=== PATIENT | male | born 1935 | race Caucasian/White ===

== ENCOUNTER 2017-01-26 14:20 | Inpatient (IN) | payer MEDICARE, OTHER ==
[2017-01-26] MEDS ORDERED: TYLENOL325 M2 PO (14:52)
[2017-01-26] MEDS ORDERED: ASPIRIN81 M1 PO (14:53)
[2017-01-26] MEDS ORDERED: AMARYL2 M1 PO (14:53)
[2017-01-26] MEDS ORDERED: LIPITOR20 M1 PO (14:54)
[2017-01-26] MEDS ORDERED: DEXAMETHASONE4 M1 PO (14:54)
[2017-01-26] MEDS ORDERED: CYCLOBENZAPRINE10 M1 PO (14:54)
[2017-01-26] MEDS ORDERED: DICLOFENAC SODI50 M1 (14:55)
[2017-01-26] MEDS ORDERED: MIDODRINE HCL5 M1 PO (14:56)
[2017-01-26] MEDS ORDERED: NITROSTAT0.4 MG/TAB SL (14:56)
[2017-01-26] MEDS ORDERED: ADULT TUSS100 MG/51 PO (14:56)
[2017-01-26] MEDS ORDERED: LYRICA50 MG/CAP PO (14:56)
[2017-01-26] MEDS ORDERED: NORCO 5-325 TA1 EACH PO (14:57)
[2017-01-26] MEDS ORDERED: ONGLYZA2.5 M1 PO (14:57)
[2017-01-26] MEDS ORDERED: OMEPRAZOLE20 M3 PO (14:57)
[2017-01-26] MEDS ORDERED: FLOMAX0.4 M1 PO (14:58)
[2017-01-26] MEDS ORDERED: ALDACTONE25 M1 PO (14:58)
[2017-01-26] MEDS ORDERED: REQUIP4 M1 PO (14:58)
[2017-01-26] MEDS ORDERED: SIMVASTATIN80 M1 PO (14:59)
[2017-01-26] MEDS ORDERED: B-121000 MC2 PO (14:59)
[2017-01-26 19:12] LABS: ALB/GLOB RATIO 0.7 (0.8-2.0); ALBUMIN 2.8 g/dl (3.5-5.0); ALKALINE PHOSPHATASE 91 U/L (33-138); ALT/SGPT 28 U/L (12-78); ANION GAP 12 mmol/L (0-20); AST/SGOT 35 U/L (10-40); BILIRUBIN,TOTAL 0.5 mg/dl (0.0-1.5); BLOOD UREA NITROGEN 27 mg/dl (6-24); CALCIUM 8.5 mg/dl (8.5-10.5); CARBON DIOXIDE-VENOUS 28 mmol/L (22-32); CHLORIDE 104 mmol/l (96-110); CREATININE 1.25 mg/dl (0.60-1.30); GLUCOSE 137 mg/dL (70-110); MAGNESIUM 1.7 mg/dl (1.3-2.6); PHOSPHOROUS 2.8 mg/dl (2.5-4.9); POTASSIUM 4.6 mmol/L (3.7-5.1); SODIUM 139 mmol/L (135-145); eGFR VALUE FOR BLACK 62 mL/Min
[2017-01-26 19:20] LABS: BASO % 0.1 % (0-2); EOS % 0.9 % (0-7); EOSINOPHIL ABSOLUTE COUNT 0.1 tho/cmm (0.0-0.7); HGB-HEMOGLOBIN 10.9 gm/dl (13.5-17.0); IMMATURE GRANULOCYTES ABSOLUTE 0.09 tho/cmm (0-0.03); IMMATURE GRANULOCYTES PERCENT 1.2 % (0-0.3); LYMPH % 7.7 % (20-45); LYMPH ABSOLUTE COUNT 0.6 tho/cmm (0.8-4.5); MCH (MEAN CORPUSCULAR HGB) 25.3 pg (28.0-32.0); MCHC MEAN CORPUSCULAR HGB CONC 31.1 % (32.0-36.0); MCV (MEAN CELL VOLUME) 81.4 fl (82.0-96.0); MEAN PLATELET VOLUME 11.9 cmc (9.4-12.4); MONO % 9.7 % (0-12); MONOCYTE ABSOLUTE COUNT 0.7 tho/cmm (0.0-1.2); NEUTROPHIL ABSOLUTE COUNT 6.1 tho/cmm (1.6-8.0); NEUTROPHIL-AUTOMATED 6.1 tho/cmm (1.6-8.0); NEUTROPHILS % 80.4 % (40-80); RED CELL DISTRIBUTION WIDTH 17.4 % (12.4-16.4); WHITE BLOOD COUNT 7.5 tho/cmm (4.0-10.0)
[2017-01-26 19:52] LABS: PLATELET COUNT 96 tho/cmm (150-450)
[2017-01-28 06:43] LABS: EOS % 0.2 % (0-7); HCT-HEMATOCRIT 33.9 % (36.0-53.5); HGB-HEMOGLOBIN 10.7 gm/dl (13.5-17.0); IMMATURE GRANULOCYTES ABSOLUTE 0.08 tho/cmm (0-0.03); IMMATURE GRANULOCYTES PERCENT 1.3 % (0-0.3); LYMPH % 4.3 % (20-45); LYMPH ABSOLUTE COUNT 0.3 tho/cmm (0.8-4.5); MCH (MEAN CORPUSCULAR HGB) 25.6 pg (28.0-32.0); MCHC MEAN CORPUSCULAR HGB CONC 31.6 % (32.0-36.0); MCV (MEAN CELL VOLUME) 81.1 fl (82.0-96.0); MEAN PLATELET VOLUME 10.9 cmc (9.4-12.4); MONO % 11.3 % (0-12); MONOCYTE ABSOLUTE COUNT 0.7 tho/cmm (0.0-1.2); NEUTROPHILS % 82.9 % (40-80); PLATELET COUNT 125 tho/cmm (150-450); RED BLOOD COUNT 4.18 mil/cmm (4.40-5.70); RED CELL DISTRIBUTION WIDTH 17.2 % (12.4-16.4)
[2017-01-30] MEDS ORDERED: CYCLOBENZAPRINE10 M1 PO (12:16)
[2017-05-07] MEDS ORDERED: CLARITIN10 M6 PO
[2017-05-07] MEDS ORDERED: TOPROL XL25 M1 PO (00:02)
[2017-05-07] MEDS ORDERED: ONGLYZA2.5 M1 PO (00:03)
[2017-05-07] MEDS ORDERED: PROTONIX40 M2 PO (00:03)
[2017-05-07] MEDS ORDERED: FUROSEMIDE20 M1 PO (00:05)
[2017-05-07] MEDS ORDERED: MILK OF MAGNESIA PO (00:09)
[2017-05-07] MEDS ORDERED: POTASSIUM CHLO10 ME2 PO (00:11)
== END 2017-01-30 13:37 | DRG 472 ==
LOC: 5EB 14:20 → ORE 01-28 10:07 → PACU 01-28 14:15 → CCU 01-28 15:38 → 5EB 01-30 06:00
PROVIDERS: Family Medicine; Neurological Surgery; ADMIT Internal Medicine
PROC: 05HD33Z Insertion of Infusion Device into Right Cephalic Vein, Percutaneous Approach (ICD-10-PCS; 2017-01-26)
PROC: 0RG2071 Fusion of 2 or more Cervical Vertebral Joints with Autologous Tissue Substitute, Posterior Approach, Posterior Column, Open Approach (ICD-10-PCS; principal; 2017-01-28)
PROC: 8E0WXBG Computer Assisted Procedure of Trunk Region, With Computerized Tomography (ICD-10-PCS; 2017-01-28)
DX: M47.12 Other spondylosis with myelopathy, cervical region (principal); I13.0 Hypertensive heart and chronic kidney disease with heart failure and stage 1 through stage 4 chronic kidney disease, or unspecified chronic kidney disease; I50.22 Chronic systolic (congestive) heart failure; E11.42 Type 2 diabetes mellitus with diabetic polyneuropathy; M48.02 Spinal stenosis, cervical region; M48.06 Spinal stenosis, lumbar region; I25.5 Ischemic cardiomyopathy; G25.81 Restless legs syndrome; I25.10 Atherosclerotic heart disease of native coronary artery without angina pectoris; N40.0 Benign prostatic hyperplasia without lower urinary tract symptoms; G25.3 Myoclonus; Z95.1 Presence of aortocoronary bypass graft; Z79.82 Long term (current) use of aspirin; Z79.84 Long term (current) use of oral hypoglycemic drugs; E78.5 Hyperlipidemia, unspecified; N18.2 Chronic kidney disease, stage 2 (mild)
CPT/HCPCS: C1713; C1751; J0690; J1650; J1815; J2250; J3010; J7040

== ENCOUNTER 2017-02-11 13:39 | Inpatient (IN) | payer MEDICARE, OTHER ==
[~2017-02-11 13:39] MED LIST: ADULT TUSS100 MG/51 PO; ALDACTONE25 M1 PO; AMARYL2 M1 PO; ASPIRIN81 M1 PO; B-121000 MC2 PO; CYCLOBENZAPRINE10 M1 PO; DEXAMETHASONE4 M1 PO; DICLOFENAC SODI50 M1; FLOMAX0.4 M1 PO; LIPITOR20 M1 PO; LYRICA50 MG/CAP PO; MIDODRINE HCL5 M1 PO; NITROSTAT0.4 MG/TAB SL; NORCO 5-325 TA1 EACH PO; OMEPRAZOLE20 M3 PO; ONGLYZA2.5 M1 PO; REQUIP4 M1 PO; SIMVASTATIN80 M1 PO; TYLENOL325 M2 PO
[2017-02-11] MEDS ORDERED: DEXAMETHASONE4 M1 PO (14:42)
[2017-02-11] MEDS ORDERED: NEURONTIN300 M1 PO (14:46)
[2017-02-11 17:51] LABS: BASO % 0.1 % (0-2); EOS % 0.1 % (0-7); HCT-HEMATOCRIT 28.8 % (36.0-53.5); HGB-HEMOGLOBIN 8.7 gm/dl (13.5-17.0); IMMATURE GRANULOCYTES ABSOLUTE 0.08 tho/cmm (0-0.03); IMMATURE GRANULOCYTES PERCENT 0.6 % (0-0.3); LYMPH % 4.4 % (20-45); LYMPH ABSOLUTE COUNT 0.6 tho/cmm (0.8-4.5); MCH (MEAN CORPUSCULAR HGB) 24.8 pg (28.0-32.0); MCHC MEAN CORPUSCULAR HGB CONC 30.2 % (32.0-36.0); MCV (MEAN CELL VOLUME) 82.1 fl (82.0-96.0); MEAN PLATELET VOLUME 10.5 cmc (9.4-12.4); MONOCYTE ABSOLUTE COUNT 1.4 tho/cmm (0.0-1.2); NEUTROPHIL ABSOLUTE COUNT 11.4 tho/cmm (1.6-8.0); NEUTROPHIL-AUTOMATED 11.4 tho/cmm (1.6-8.0); NEUTROPHILS % 84.8 % (40-80); PLATELET COUNT 234 tho/cmm (150-450); RED BLOOD COUNT 3.51 mil/cmm (4.40-5.70); RED CELL DISTRIBUTION WIDTH 17.5 % (12.4-16.4); WHITE BLOOD COUNT 13.5 tho/cmm (4.0-10.0)
[2017-02-11 18:07] LABS: C-REACTIVE PROTEIN 15.7 mg/dl (0-0.9)
--- NOTE | 2017-02-11 18:39 | NUR ---
PATIENT RECEIVED 1500CC NS BOLUS IN [facility] SO GIVING PATIENT 500CC TO MAKE 2000CC TOTAL FOR 30CC/KG.
[2017-02-11 18:54] LABS: URINE BILIRUBIN NEGATIVE (NEG); URINE BLOOD NEGATIVE (NEG); URINE GLUCOSE (UA) NEGATIVE (NEG); URINE KETONE NEGATIVE (NEG); URINE LEUKOCYTE ESTERASE POSITIVE (NEG); URINE NITRITE NEGATIVE (NEG); URINE PROTEIN NEGATIVE (NEG); URINE SPECIFIC GRAVITY 1.015 (1.003-1.030)
[2017-02-11 19:01] LABS: URINE APPEARANCE CLEAR; URINE COLOR YELLOW
[2017-02-11 19:02] LABS: eGFR VALUE FOR BLACK 46 mL/Min
[2017-02-11 19:13] LABS: URINE RBC 0 /[HPF] (0-5)
[2017-02-12 04:48] LABS: ANION GAP 12 mmol/L (0-20); BLOOD UREA NITROGEN 32 mg/dl (6-24); CALCIUM 8.8 mg/dl (8.5-10.5); CARBON DIOXIDE-VENOUS 35 mmol/L (22-32); CHLORIDE 97 mmol/l (96-110); CREATININE 1.56 mg/dl (0.60-1.30); GLUCOSE 139 mg/dL (70-110); POTASSIUM 3.5 mmol/L (3.7-5.1); SODIUM 140 mmol/L (135-145); eGFR VALUE FOR BLACK 48 mL/Min
[2017-02-12 15:26] LABS: BASO % 0.1 % (0-2); EOS % 0.1 % (0-7); HCT-HEMATOCRIT 30.4 % (36.0-53.5); HGB-HEMOGLOBIN 9.3 gm/dl (13.5-17.0); IMMATURE GRANULOCYTES ABSOLUTE 0.07 tho/cmm (0-0.03); IMMATURE GRANULOCYTES PERCENT 0.5 % (0-0.3); LYMPH % 2.2 % (20-45); LYMPH ABSOLUTE COUNT 0.3 tho/cmm (0.8-4.5); MCH (MEAN CORPUSCULAR HGB) 24.9 pg (28.0-32.0); MCHC MEAN CORPUSCULAR HGB CONC 30.6 % (32.0-36.0); MCV (MEAN CELL VOLUME) 81.3 fl (82.0-96.0); MEAN PLATELET VOLUME 10.6 cmc (9.4-12.4); MONO % 2.8 % (0-12); MONOCYTE ABSOLUTE COUNT 0.4 tho/cmm (0.0-1.2); NEUTROPHIL ABSOLUTE COUNT 14.2 tho/cmm (1.6-8.0); NEUTROPHIL-AUTOMATED 14.2 tho/cmm (1.6-8.0); NEUTROPHILS % 94.3 % (40-80); PLATELET COUNT 250 tho/cmm (150-450); RED BLOOD COUNT 3.74 mil/cmm (4.40-5.70); RED CELL DISTRIBUTION WIDTH 17.1 % (12.4-16.4)
[2017-02-12 15:33] LABS: BLOOD UREA NITROGEN 37 mg/dl (6-24); CALCIUM 8.2 mg/dl (8.5-10.5); CARBON DIOXIDE-VENOUS 34 mmol/L (22-32); CHLORIDE 91 mmol/l (96-110); CREATININE 1.78 mg/dl (0.60-1.30); SODIUM 133 mmol/L (135-145); eGFR VALUE FOR BLACK 41 mL/Min
[2017-02-12 15:47] LABS: ANION GAP 12 mmol/L (0-20); GLUCOSE 337 mg/dL (70-110); POTASSIUM 4.4 mmol/L (3.7-5.1)
[2017-02-13 05:11] LABS: BASO % 0.1 % (0-2); EOS % 0.1 % (0-7); HCT-HEMATOCRIT 30.9 % (36.0-53.5); HGB-HEMOGLOBIN 9.5 gm/dl (13.5-17.0); IMMATURE GRANULOCYTES ABSOLUTE 0.08 tho/cmm (0-0.03); IMMATURE GRANULOCYTES PERCENT 0.6 % (0-0.3); LYMPH % 3.9 % (20-45); LYMPH ABSOLUTE COUNT 0.5 tho/cmm (0.8-4.5); MCH (MEAN CORPUSCULAR HGB) 24.9 pg (28.0-32.0); MCHC MEAN CORPUSCULAR HGB CONC 30.7 % (32.0-36.0); MCV (MEAN CELL VOLUME) 81.1 fl (82.0-96.0); MEAN PLATELET VOLUME 10.9 cmc (9.4-12.4); MONOCYTE ABSOLUTE COUNT 1.1 tho/cmm (0.0-1.2); NEUTROPHIL ABSOLUTE COUNT 11.6 tho/cmm (1.6-8.0); NEUTROPHIL-AUTOMATED 11.6 tho/cmm (1.6-8.0); NEUTROPHILS % 87.3 % (40-80); PLATELET COUNT 271 tho/cmm (150-450); RED BLOOD COUNT 3.81 mil/cmm (4.40-5.70); WHITE BLOOD COUNT 13.3 tho/cmm (4.0-10.0)
[2017-02-13 05:22] LABS: BLOOD UREA NITROGEN 39 mg/dl (6-24); CALCIUM 8.5 mg/dl (8.5-10.5); CARBON DIOXIDE-VENOUS 33 mmol/L (22-32); CHLORIDE 91 mmol/l (96-110); CREATININE 1.81 mg/dl (0.60-1.30); GLUCOSE 212 mg/dL (70-110); SODIUM 134 mmol/L (135-145); eGFR VALUE FOR BLACK 40 mL/Min
[2017-02-13 05:36] LABS: ANION GAP 15 mmol/L (0-20); C-REACTIVE PROTEIN 19.5 mg/dl (0-0.9); POTASSIUM 4.7 mmol/L (3.7-5.1)
[2017-02-14 05:11] LABS: BASO % 0.1 % (0-2); EOS % 0.1 % (0-7); HCT-HEMATOCRIT 28.8 % (36.0-53.5); HGB-HEMOGLOBIN 8.8 gm/dl (13.5-17.0); IMMATURE GRANULOCYTES ABSOLUTE 0.05 tho/cmm (0-0.03); IMMATURE GRANULOCYTES PERCENT 0.4 % (0-0.3); LYMPH % 3.8 % (20-45); LYMPH ABSOLUTE COUNT 0.4 tho/cmm (0.8-4.5); MCH (MEAN CORPUSCULAR HGB) 24.6 pg (28.0-32.0); MCHC MEAN CORPUSCULAR HGB CONC 30.6 % (32.0-36.0); MCV (MEAN CELL VOLUME) 80.4 fl (82.0-96.0); MEAN PLATELET VOLUME 10.8 cmc (9.4-12.4); NEUTROPHIL ABSOLUTE COUNT 9.6 tho/cmm (1.6-8.0); NEUTROPHIL-AUTOMATED 9.6 tho/cmm (1.6-8.0); NEUTROPHILS % 86.6 % (40-80); PLATELET COUNT 257 tho/cmm (150-450); RED BLOOD COUNT 3.58 mil/cmm (4.40-5.70); RED CELL DISTRIBUTION WIDTH 17.1 % (12.4-16.4); WHITE BLOOD COUNT 11.1 tho/cmm (4.0-10.0)
[2017-02-14 05:18] LABS: BLOOD UREA NITROGEN 57 mg/dl (6-24); C-REACTIVE PROTEIN 10.8 mg/dl (0-0.9); CALCIUM 8.1 mg/dl (8.5-10.5); CARBON DIOXIDE-VENOUS 36 mmol/L (22-32); CHLORIDE 88 mmol/l (96-110); GLUCOSE 207 mg/dL (70-110); SODIUM 133 mmol/L (135-145); eGFR VALUE FOR BLACK 29 mL/Min
[2017-02-14 05:25] LABS: ANION GAP 13 mmol/L (0-20); POTASSIUM 3.8 mmol/L (3.7-5.1)
[2017-02-14 05:26] LABS: CREATININE 2.32 mg/dl (0.60-1.30)
[2017-02-14 14:21] LABS: ANION GAP 15 mmol/L (0-20); BLOOD UREA NITROGEN 62 mg/dl (6-24); CALCIUM 7.8 mg/dl (8.5-10.5); CARBON DIOXIDE-VENOUS 34 mmol/L (22-32); CHLORIDE 87 mmol/l (96-110); CREATININE 2.39 mg/dl (0.60-1.30); GLUCOSE 243 mg/dL (70-110); POTASSIUM 3.9 mmol/L (3.7-5.1); SODIUM 132 mmol/L (135-145); eGFR VALUE FOR BLACK 28 mL/Min
[2017-02-14 22:56] LABS: URINE CREATININE-RANDOM 23 mg/dl (30-125); URINE SODIUM-RANDOM 75 mmol/L (20-110)
[2017-02-15 06:23] LABS: ANION GAP 14 mmol/L (0-20); BLOOD UREA NITROGEN 58 mg/dl (6-24); CALCIUM 8.5 mg/dl (8.5-10.5); CARBON DIOXIDE-VENOUS 35 mmol/L (22-32); CHLORIDE 89 mmol/l (96-110); CREATININE 2.09 mg/dl (0.60-1.30); GLUCOSE 162 mg/dL (70-110); MAGNESIUM 1.8 mg/dl (1.3-2.6); PHOSPHOROUS 3.7 mg/dl (2.5-4.9); SODIUM 134 mmol/L (135-145); eGFR VALUE FOR BLACK 33 mL/Min
[2017-02-15 06:25] LABS: BASO % 0.3 % (0-2); EOS % 1.4 % (0-7); EOSINOPHIL ABSOLUTE COUNT 0.1 tho/cmm (0.0-0.7); HCT-HEMATOCRIT 34.5 % (36.0-53.5); HGB-HEMOGLOBIN 10.8 gm/dl (13.5-17.0); IMMATURE GRANULOCYTES ABSOLUTE 0.18 tho/cmm (0-0.03); IMMATURE GRANULOCYTES PERCENT 1.8 % (0-0.3); LYMPH % 6.6 % (20-45); LYMPH ABSOLUTE COUNT 0.7 tho/cmm (0.8-4.5); MCH (MEAN CORPUSCULAR HGB) 25.3 pg (28.0-32.0); MCHC MEAN CORPUSCULAR HGB CONC 31.3 % (32.0-36.0); MCV (MEAN CELL VOLUME) 80.8 fl (82.0-96.0); MEAN PLATELET VOLUME 11.2 cmc (9.4-12.4); MONO % 12.1 % (0-12); MONOCYTE ABSOLUTE COUNT 1.2 tho/cmm (0.0-1.2); NEUTROPHIL ABSOLUTE COUNT 7.6 tho/cmm (1.6-8.0); NEUTROPHIL-AUTOMATED 7.6 tho/cmm (1.6-8.0); NEUTROPHILS % 77.8 % (40-80); PLATELET COUNT 250 tho/cmm (150-450); RED BLOOD COUNT 4.27 mil/cmm (4.40-5.70); RED CELL DISTRIBUTION WIDTH 16.7 % (12.4-16.4); WHITE BLOOD COUNT 9.8 tho/cmm (4.0-10.0)
[2017-02-16 05:58] LABS: BASO % 0.1 % (0-2); EOS % 0.1 % (0-7); HCT-HEMATOCRIT 33.2 % (36.0-53.5); HGB-HEMOGLOBIN 10.6 gm/dl (13.5-17.0); IMMATURE GRANULOCYTES PERCENT 1.9 % (0-0.3); LYMPH % 3.3 % (20-45); LYMPH ABSOLUTE COUNT 0.4 tho/cmm (0.8-4.5); MCH (MEAN CORPUSCULAR HGB) 25.7 pg (28.0-32.0); MCHC MEAN CORPUSCULAR HGB CONC 31.9 % (32.0-36.0); MCV (MEAN CELL VOLUME) 80.4 fl (82.0-96.0); MEAN PLATELET VOLUME 11.5 cmc (9.4-12.4); MONO % 7.2 % (0-12); MONOCYTE ABSOLUTE COUNT 0.8 tho/cmm (0.0-1.2); NEUTROPHIL ABSOLUTE COUNT 9.3 tho/cmm (1.6-8.0); NEUTROPHIL-AUTOMATED 9.3 tho/cmm (1.6-8.0); NEUTROPHILS % 87.4 % (40-80); PLATELET COUNT 210 tho/cmm (150-450); RED BLOOD COUNT 4.13 mil/cmm (4.40-5.70); RED CELL DISTRIBUTION WIDTH 16.7 % (12.4-16.4); WHITE BLOOD COUNT 10.7 tho/cmm (4.0-10.0)
[2017-02-16 06:13] LABS: BLOOD UREA NITROGEN 47 mg/dl (6-24); CALCIUM 8.1 mg/dl (8.5-10.5); CARBON DIOXIDE-VENOUS 28 mmol/L (22-32); CHLORIDE 93 mmol/l (96-110); CREATININE 1.87 mg/dl (0.60-1.30); SODIUM 131 mmol/L (135-145); eGFR VALUE FOR BLACK 38 mL/Min
[2017-02-16 06:17] LABS: ANION GAP 15 mmol/L (0-20); GLUCOSE 334 mg/dL (70-110)
[2017-02-16 06:18] LABS: POTASSIUM 4.9 mmol/L (3.7-5.1)
[2017-02-17 05:27] LABS: BLOOD UREA NITROGEN 46 mg/dl (6-24); CALCIUM 8.4 mg/dl (8.5-10.5); CARBON DIOXIDE-VENOUS 33 mmol/L (22-32); CHLORIDE 93 mmol/l (96-110); CREATININE 1.75 mg/dl (0.60-1.30); SODIUM 134 mmol/L (135-145); eGFR VALUE FOR BLACK 41 mL/Min
[2017-02-17 05:53] LABS: ANION GAP 12 mmol/L (0-20); GLUCOSE 135 mg/dL (70-110); POTASSIUM 3.9 mmol/L (3.7-5.1)
[2017-02-18 05:30] LABS: ANION GAP 14 mmol/L (0-20); BLOOD UREA NITROGEN 42 mg/dl (6-24); CALCIUM 8.6 mg/dl (8.5-10.5); CARBON DIOXIDE-VENOUS 30 mmol/L (22-32); CHLORIDE 96 mmol/l (96-110); CREATININE 1.54 mg/dl (0.60-1.30); GLUCOSE 131 mg/dL (70-110); POTASSIUM 3.9 mmol/L (3.7-5.1); SODIUM 136 mmol/L (135-145); eGFR VALUE FOR BLACK 48 mL/Min
[2017-02-19 05:57] LABS: ANION GAP 13 mmol/L (0-20); BLOOD UREA NITROGEN 42 mg/dl (6-24); CALCIUM 8.6 mg/dl (8.5-10.5); CARBON DIOXIDE-VENOUS 28 mmol/L (22-32); CHLORIDE 98 mmol/l (96-110); CREATININE 1.43 mg/dl (0.60-1.30); GLUCOSE 170 mg/dL (70-110); POTASSIUM 3.9 mmol/L (3.7-5.1); SODIUM 135 mmol/L (135-145); eGFR VALUE FOR BLACK 53 mL/Min
[2017-02-19] MEDS ORDERED: PACERONE200 M1 PO (09:58)
[2017-02-19] MEDS ORDERED: LOVENOX30 MG/0.1 SC (09:58)
[2017-02-19] MEDS ORDERED: IPRAT-ALBUT 0.5-3 ML AERO NEB (09:58)
[2017-02-19] MEDS ORDERED: NORCO 5-325 TA1 EACH PO (10:02)
[2017-02-19] MEDS ORDERED: TYLENOL EXTRA500 M1 PO (10:03)
[2017-02-19] MEDS ORDERED: DULCOLAX10 MG PR (10:04)
[2017-02-19] MEDS ORDERED: SENOKOT-S TABL1 EACH PO (10:05)
[2017-02-19] MEDS ORDERED: MIRALAX17 G2 PO (10:05)
[2017-02-19] MEDS ORDERED: NOVOLOG100 UNITS/ SC (10:07)
[2017-02-19] MEDS ORDERED: VIBRAMYCIN100 M1 PO (10:08)
[2017-05-07] MEDS ORDERED: CLARITIN10 M6 PO
[2017-05-07] MEDS ORDERED: TOPROL XL25 M1 PO (00:02)
[2017-05-07] MEDS ORDERED: ONGLYZA2.5 M1 PO (00:03)
[2017-05-07] MEDS ORDERED: PROTONIX40 M2 PO (00:03)
[2017-05-07] MEDS ORDERED: FUROSEMIDE20 M1 PO (00:05)
[2017-05-07] MEDS ORDERED: MILK OF MAGNESIA PO (00:09)
[2017-05-07] MEDS ORDERED: POTASSIUM CHLO10 ME2 PO (00:11)
== END 2017-02-19 14:00 | DRG 856 ==
LOC: PCUA 13:39 → ORE 02-15 11:00 → PACU 02-15 12:33 → PCUA 02-15 14:24
PROVIDERS: Family Medicine; Internal Medicine; Internal Medicine Interventional Cardiology; Internal Medicine Nephrology; ADMIT Internal Medicine
PROC: 05H633Z Insertion of Infusion Device into Left Subclavian Vein, Percutaneous Approach (ICD-10-PCS; 2017-02-11)
PROC: 5A09357 Assistance with Respiratory Ventilation, Less than 24 Consecutive Hours, Continuous Positive Airway Pressure (ICD-10-PCS; 2017-02-12)
PROC: 0PP304Z Removal of Internal Fixation Device from Cervical Vertebra, Open Approach (ICD-10-PCS; principal; 2017-02-15)
PROC: 0J9500Z Drainage of Left Neck Subcutaneous Tissue and Fascia with Drainage Device, Open Approach (ICD-10-PCS; 2017-02-15)
DX: T81.4XXA Infection following a procedure, initial encounter (principal); J96.01 Acute respiratory failure with hypoxia; I50.43 Acute on chronic combined systolic (congestive) and diastolic (congestive) heart failure; N17.9 Acute kidney failure, unspecified; A41.9 Sepsis, unspecified organism; N18.3 Chronic kidney disease, stage 3 (moderate); I13.0 Hypertensive heart and chronic kidney disease with heart failure and stage 1 through stage 4 chronic kidney disease, or unspecified chronic kidney disease; E87.1 Hypo-osmolality and hyponatremia; G95.9 Disease of spinal cord, unspecified; Z91.81 History of falling; N40.0 Benign prostatic hyperplasia without lower urinary tract symptoms; E78.5 Hyperlipidemia, unspecified; I25.10 Atherosclerotic heart disease of native coronary artery without angina pectoris; Z95.1 Presence of aortocoronary bypass graft; I25.5 Ischemic cardiomyopathy; Z98.1 Arthrodesis status; Z87.891 Personal history of nicotine dependence; E11.22 Type 2 diabetes mellitus with diabetic chronic kidney disease; Z95.810 Presence of automatic (implantable) cardiac defibrillator; Z79.82 Long term (current) use of aspirin; B95.0 Streptococcus, group A, as the cause of diseases classified elsewhere; Z90.5 Acquired absence of kidney; R91.1 Solitary pulmonary nodule
CPT/HCPCS: C1751; J0282; J1160; J1250; J1650; J1815; J1940; J2250; J2543; J3010; J3370; J3475; J3480; J7030; J7040; J7050; P9016

== ENCOUNTER 2017-05-07 15:41 | Inpatient (IN) | payer MEDICARE, OTHER, MEDICAID ==
[~2017-05-07 15:41] MED LIST changes: +CLARITIN10 M6 PO; +DULCOLAX10 MG PR; +FUROSEMIDE20 M1 PO; +IPRAT-ALBUT 0.5-3 ML AERO NEB; +LOVENOX30 MG/0.1 SC; +MILK OF MAGNESIA PO; +MIRALAX17 G2 PO; +NEURONTIN300 M1 PO; +NOVOLOG100 UNITS/ SC; +PACERONE200 M1 PO; +POTASSIUM CHLO10 ME2 PO; +PROTONIX40 M2 PO; +SENOKOT-S TABL1 EACH PO; +TOPROL XL25 M1 PO; +TYLENOL EXTRA500 M1 PO; +VIBRAMYCIN100 M1 PO
[2017-05-07 17:58] LABS: BASO % 0.2 % (0-2); EOS % 2.2 % (0-7); EOSINOPHIL ABSOLUTE COUNT 0.1 tho/cmm (0.0-0.7); HCT-HEMATOCRIT 19.9 % (36.0-53.5); HGB-HEMOGLOBIN 6.1 gm/dl (13.5-17.0); IMMATURE GRANULOCYTES ABSOLUTE 0.08 tho/cmm (0-0.03); IMMATURE GRANULOCYTES PERCENT 1.5 % (0-0.3); LYMPH % 12.7 % (20-45); LYMPH ABSOLUTE COUNT 0.7 tho/cmm (0.8-4.5); MCH (MEAN CORPUSCULAR HGB) 25.5 pg (28.0-32.0); MCHC MEAN CORPUSCULAR HGB CONC 30.7 % (32.0-36.0); MCV (MEAN CELL VOLUME) 83.3 fl (82.0-96.0); MONO % 13.6 % (0-12); MONOCYTE ABSOLUTE COUNT 0.7 tho/cmm (0.0-1.2); NEUTROPHIL ABSOLUTE COUNT 3.8 tho/cmm (1.6-8.0); NEUTROPHIL-AUTOMATED 3.8 tho/cmm (1.6-8.0); NEUTROPHILS % 69.8 % (40-80); PLATELET COUNT 130 tho/cmm (150-450); RED BLOOD COUNT 2.39 mil/cmm (4.40-5.70); RED CELL DISTRIBUTION WIDTH 19.2 % (12.4-16.4); WHITE BLOOD COUNT 5.4 tho/cmm (4.0-10.0)
[2017-05-07 18:16] LABS: IRON 25 ug/dl (49-181); IRON BINDING CAPACITY 363 ug/dl (250-450)
[2017-05-07 18:18] LABS: ALB/GLOB RATIO 0.9 (0.8-2.0); ALBUMIN 3.2 g/dl (3.5-5.0); ALKALINE PHOSPHATASE 89 U/L (33-138); ALT/SGPT 25 U/L (12-78); ANION GAP 17 mmol/L (0-20); AST/SGOT 16 U/L (10-40); BILIRUBIN,DIRECT 0.1 mg/dl (0.0-0.3); BILIRUBIN,INDIRECT 0.1 mg/dL (0.0-1.0); BILIRUBIN,TOTAL 0.2 mg/dl (0.0-1.5); BLOOD UREA NITROGEN 69 mg/dl (6-24); CALCIUM 8.2 mg/dl (8.5-10.5); CARBON DIOXIDE-VENOUS 23 mmol/L (22-32); CHLORIDE 110 mmol/l (96-110); CREATININE 1.75 mg/dl (0.60-1.30); FERRITIN 13 ng/ml (22-388); GLUCOSE 90 mg/dL (70-110); MAGNESIUM 2.4 mg/dl (1.8-2.6); POTASSIUM 4.7 mmol/L (3.7-5.1); SODIUM 145 mmol/L (135-145); eGFR VALUE FOR BLACK 41 mL/Min
[2017-05-07] MEDS ORDERED: LIPITOR20 M1 PO (23:53)
[2017-05-07] MEDS ORDERED: FLUTICASONE (23:58)
[2017-05-07] MEDS ORDERED: LASIX20 M1 PO (23:59)
[2017-05-08 11:55] LABS: HGB-HEMOGLOBIN 8.6 gm/dl (13.5-17.0)
[2017-05-09 05:32] LABS: URINE BILIRUBIN NEGATIVE (NEG); URINE BLOOD NEGATIVE (NEG); URINE GLUCOSE (UA) NEGATIVE (NEG); URINE KETONE NEGATIVE (NEG); URINE LEUKOCYTE ESTERASE POSITIVE (NEG); URINE NITRITE NEGATIVE (NEG); URINE PROTEIN NEGATIVE (NEG)
[2017-05-09 05:39] LABS: URINE APPEARANCE CLOUDY; URINE COLOR PALE YELLOW
[2017-05-09 05:51] LABS: URINE BACTERIA 3+; URINE EPITHELIAL CELLS RARE /[HPF] (0-10); URINE RBC 0 /[HPF] (0-5); URINE WBC 15-20 /[HPF] (0-5)
[2017-05-09 18:44] LABS: BASO % 0.1 % (0-2); EOS % 1.4 % (0-7); EOSINOPHIL ABSOLUTE COUNT 0.1 tho/cmm (0.0-0.7); HGB-HEMOGLOBIN 8.8 gm/dl (13.5-17.0); IMMATURE GRANULOCYTES ABSOLUTE 0.05 tho/cmm (0-0.03); IMMATURE GRANULOCYTES PERCENT 0.7 % (0-0.3); LYMPH % 9.2 % (20-45); LYMPH ABSOLUTE COUNT 0.7 tho/cmm (0.8-4.5); MCH (MEAN CORPUSCULAR HGB) 26.3 pg (28.0-32.0); MCV (MEAN CELL VOLUME) 84.7 fl (82.0-96.0); MONO % 9.9 % (0-12); MONOCYTE ABSOLUTE COUNT 0.8 tho/cmm (0.0-1.2); NEUTROPHILS % 78.7 % (40-80); PLATELET COUNT 119 tho/cmm (150-450); RED BLOOD COUNT 3.34 mil/cmm (4.40-5.70); WHITE BLOOD COUNT 7.7 tho/cmm (4.0-10.0)
[2017-05-09 18:45] LABS: HCT-HEMATOCRIT 28.3 % (36.0-53.5); MCHC MEAN CORPUSCULAR HGB CONC 31.1 % (32.0-36.0)
[2017-05-09 18:52] LABS: ANION GAP 14 mmol/L (0-20); BLOOD UREA NITROGEN 58 mg/dl (6-24); CALCIUM 8.3 mg/dl (8.5-10.5); CARBON DIOXIDE-VENOUS 25 mmol/L (22-32); CHLORIDE 104 mmol/l (96-110); CREATININE 1.81 mg/dl (0.60-1.30); GLUCOSE 190 mg/dL (70-110); POTASSIUM 4.5 mmol/L (3.7-5.1); SODIUM 138 mmol/L (135-145); eGFR VALUE FOR BLACK 40 mL/Min
[2017-05-10 09:27] LABS: BASO % 0.2 % (0-2); EOS % 1.9 % (0-7); EOSINOPHIL ABSOLUTE COUNT 0.1 tho/cmm (0.0-0.7); HCT-HEMATOCRIT 28.9 % (36.0-53.5); HGB-HEMOGLOBIN 8.9 gm/dl (13.5-17.0); IMMATURE GRANULOCYTES ABSOLUTE 0.02 tho/cmm (0-0.03); IMMATURE GRANULOCYTES PERCENT 0.3 % (0-0.3); LYMPH % 10.3 % (20-45); LYMPH ABSOLUTE COUNT 0.7 tho/cmm (0.8-4.5); MCHC MEAN CORPUSCULAR HGB CONC 30.8 % (32.0-36.0); MCV (MEAN CELL VOLUME) 84.5 fl (82.0-96.0); MONO % 9.8 % (0-12); MONOCYTE ABSOLUTE COUNT 0.6 tho/cmm (0.0-1.2); NEUTROPHIL ABSOLUTE COUNT 4.9 tho/cmm (1.6-8.0); NEUTROPHIL-AUTOMATED 4.9 tho/cmm (1.6-8.0); NEUTROPHILS % 77.5 % (40-80); RED BLOOD COUNT 3.42 mil/cmm (4.40-5.70); WHITE BLOOD COUNT 6.3 tho/cmm (4.0-10.0)
[2017-05-10 09:35] LABS: ANION GAP 12 mmol/L (0-20); BLOOD UREA NITROGEN 54 mg/dl (6-24); CALCIUM 8.5 mg/dl (8.5-10.5); CARBON DIOXIDE-VENOUS 25 mmol/L (22-32); CHLORIDE 108 mmol/l (96-110); CREATININE 1.66 mg/dl (0.60-1.30); GLUCOSE 123 mg/dL (70-110); POTASSIUM 4.6 mmol/L (3.7-5.1); SODIUM 140 mmol/L (135-145); eGFR VALUE FOR BLACK 44 mL/Min
[2017-05-10 11:00] LABS: PLATELET COUNT 110 tho/cmm (150-450)
[2017-05-10] MEDS ORDERED: BACTRIM DS TAB1 EAC2 PO (13:26)
== END 2017-05-10 15:40 | DRG 811 ==
LOC: 5EB 15:41
PROVIDERS: Internal Medicine; ADMIT Internal Medicine
PROC: 30233N1 Transfusion of Nonautologous Red Blood Cells into Peripheral Vein, Percutaneous Approach (ICD-10-PCS; principal; 2017-05-08)
DX: D64.9 Anemia, unspecified (principal); I50.43 Acute on chronic combined systolic (congestive) and diastolic (congestive) heart failure; I95.89 Other hypotension; E11.22 Type 2 diabetes mellitus with diabetic chronic kidney disease; N39.0 Urinary tract infection, site not specified; N18.3 Chronic kidney disease, stage 3 (moderate); I25.5 Ischemic cardiomyopathy; I25.10 Atherosclerotic heart disease of native coronary artery without angina pectoris; E78.5 Hyperlipidemia, unspecified; N40.0 Benign prostatic hyperplasia without lower urinary tract symptoms; Z95.1 Presence of aortocoronary bypass graft; Z87.891 Personal history of nicotine dependence; Z86.14 Personal history of Methicillin resistant Staphylococcus aureus infection; Z79.1 Long term (current) use of non-steroidal anti-inflammatories (NSAID); Z79.899 Other long term (current) drug therapy
CPT/HCPCS: G8978-GP-CJ; G8979-GP-CI; J0696; J1815; J1940; J7050; P9016